=== PATIENT | female | born 1995 | race Two or more races ===

== ENCOUNTER 2020-12-30 10:23 | Inpatient (IN) | payer SELFPAY ==
[~2020-12-30] VITALS: Ht 162.6 cm; Wt 55.0 kg
[2020-12-30] MEDS ORDERED: ONDANSETRON PF 4 MG/2 ML VIAL. IVP ONE (11:30)
[2020-12-30] MEDS ORDERED: IV NORMAL SALINE 1000ML BAG 1,000 ML IV ONE ×3 (11:30→15:45)
[2020-12-30 11:32] LABS: BASO % 0 % (0-3); EOS % 0 % (0-3); HEMATOCRIT 32.5 % (36.0-47.0); LYMPH # 0.9 x10^3/uL (1.0-4.8); LYMPH % 4 % (24-48); MEAN CORPUSCULAR HEMOGLOBIN 26 pg (25-35); MEAN CORPUSCULAR HGB CONC 34 g/dL (31-37); MEAN CORPUSCULAR VOLUME 77 fL (79-100); MONO # 1.4 x10^3/uL (0.0-1.1); MONO % 7 % (0-9); NEUT # 18.3 x10^3/uL (1.8-7.7); NEUT % 89 % (31-73); PLATELET COUNT 251 x10^3/uL (140-400); RED BLOOD COUNT 4.23 x10^6/uL (3.50-5.40); RED CELL DISTRIBUTION WIDTH 19.3 % (11.5-14.5); WHITE BLOOD COUNT 20.6 x10^3/uL (4.0-11.0)
[2020-12-30 11:45] LABS: CALCIUM 8.7 mg/dL (8.5-10.1); CREATININE 0.8 mg/dL (0.6-1.0); POTASSIUM 3.6 mmol/L (3.5-5.1)
[2020-12-30 11:53] LABS: ALBUMIN/GLOBULIN RATIO 0.6 (1.0-1.7); TOTAL BILIRUBIN 0.4 mg/dL (0.2-1.0); TOTAL PROTEIN 8.1 g/dL (6.4-8.2)
[2020-12-30 11:54] LABS: BILIRUBIN,URINE SMALL (NEG); COLOR,URINE AMBER; NITRITE,URINE NEGATIVE (NEG); PROTEIN,URINE 30 mg/dL (NEG-TRACE)
[2020-12-30 12:00] LABS: CLARITY,URINE CLOUDY
[2020-12-30 12:01] LABS: BACTERIA,URINE MANY /HPF (0-FEW); WBC,URINE 20-40 /HPF (0-4)
[2020-12-30 12:05] LABS: % BANDS 6 % (0-9); % LYMPHS 3 % (24-48); % MONOS 3 % (0-10); % SEGS 88 % (35-66)
[2020-12-30 12:06] LABS: ANISOCYTOSIS SLIGHT; PLT ESTIMATE ADEQUATE (ADEQUATE)
--- NOTE | 2020-12-30 12:25 | RAD ---
EXAM: Obstetrics sonogram. HISTORY: Pain. TECHNIQUE: Sonographic imaging of the a gravid uterus was performed. COMPARISON: None. FINDINGS: There is a single intrauterine fetus in transverse presentation with a heart rate of 178 bp m. There is a grade 1 anterior placenta without evidence of placenta previa. The amniotic fluid volum e is grossly normal. The cervix is closed and measures 4.7 cm in length. The gestational sac is parvin l in configuration and location. The biparietal diameter is 1.93 cm, corresponding with 30 weeks and 0 days. The head circumference is 8.10 cm, corresponding with 30 weeks and 3 days. The abdominal circ umference is 6.52 cm, corresponding with 30 weeks and 1 day. The femoral length is 0.78 cm, correspon ding with 12 weeks and 3 days. The estimated gestational age patient combined ultrasound measurements is 13 weeks and 0 days and the estimated due date is 07/07/2021. IMPRESSION: Single intrauterine fetus with normal heart rate and an estimated gestational age based o n ultrasound measurements of 13 weeks and 0 days. No acute sonographic finding. Electronically signed by: Marietta Peters MD (12/30/2020 12:23 PM) [id number]
[2020-12-30] MEDS ORDERED: cefTRIAXone IV Push 1 GM VIAL. IVP ONE (12:30)
[2020-12-30] MEDS ORDERED: MORPHINE SULFATE 4 MG/ML VIAL. ONE (13:46)
[2020-12-30] MEDS ORDERED: MORPHINE SULFATE 4 MG/ML VIAL. IV ONE (14:00)
--- NOTE | 2020-12-30 15:09 | PHYS DOC ---
Past Medical History Past Medical History: No Pertinent History Past Surgical History: No Surgical History Smoking Status: Never Smoker Alcohol Use: None General Adult EDM: Chief Complaint: ABDOMINAL PAIN IN HPI: HPI: Patient is a 25 year old female patient 4 para 1, 1 miscarriage currently 12 to 13 weeks presenting to the ED today complaining of mild to moderate lower abdominal pain radiating to her back, symptoms began a month ago and have got worse yesterday. Reports nausea vomiting for 1 month. Denies any fever. Describes the pain as cramping. Denies any vaginal bleeding. Mazin es anything exacerbating or relieving the pain. She states she follows up with [facility] for her Patient is [place]-speaking and full time staff interpreter line was used Review of Systems: Review of Systems: Constitutional: Denies fever or chills. [] Eyes: Denies change in visual acuity. [] HENT: Denies nasal congestion or sore throat. [] Respiratory: Denies cough or shortness of breath. [] Cardiovascular: Denies chest pain or edema. [] GI: Reports abdominal pain in , denies bloody stools or diarrhea. [] : Denies dysuria. [] Musculoskeletal: Denies back pain or joint pain. [] Integument: Denies rash. [] Neurologic: Denies headache, focal weakness or sensory changes. [] Psychiatric: Denies depression or anxiety. [] Heart Score: C/O Chest Pain: N/A Risk Factors: Risk Factors: DM, Current or recent (<one month) smoker, HTN, HLP, family hi story of CAD, obesity. Risk Scores: Score 0 - 3: 2.5% MACE over next 6 weeks - Discharge Home Score 4 - 6: 20.3% MACE over next 6 weeks - Admit for Clinical Observation Score 7 - 10: 72.7% MACE over next 6 weeks - Early Invasive Strategies Current Medications: Current Medications Medications (Trade) Dose Ordered Sig/Glenny Start Time Stop Time Status Last Admin Dose Admin Ceftriaxone Sodium (Rocephin) 1 gm 1X ONCE 12/30/20 12:30 12/30/20 12:31 DC 12/30/20 13:59 1 GM Ondansetron HCl (Zofran) 4 mg 1X ONCE 12/30/20 11:30 12/30/20 11:31 DC 12/30/20 12:17 4 MG Sodium Chloride 1,000 ml @ 1,000 mls/hr 1X ONCE 12/30/20 11:30 12/30/20 12:29 DC 12/30/20 12:17 1,000 MLS/HR Allergies: Allergies: Allergies Coded Allergies Type Severity Reaction Last Updated Verified No Known Drug Allergies 12/30/20 No Physical Exam: PE: Constitutional: Well developed, well nourished, no acute distress, non-toxic appearance. [] HENT: Normocephalic, atraumatic, bilateral external ears normal, oropharynx moist, no oral exudates, nose normal. [] Eyes: PERRLA, EOMI, conjunctiva normal, no discharge. [] Neck: Normal range of motion, no tenderness, supple, no stridor. [] Cardiovascular:Heart rate regular rhythm, no murmur [] Lungs & Thorax: Bilateral breath sounds clear to auscultation [] Abdomen: Bowel sounds normal, soft, no tenderness, no masses, no pulsatile m asses. [] Skin: Warm, dry, no erythema, no rash. [] Back: No tenderness, no CVA tenderness. [] Extremities: No tenderness, no cyanosis, no clubbing, ROM intact, no edema. [] Neurologic: Alert and oriented X 3, normal motor function, normal sensory function, no focal deficits noted. [] Psychologic: Affect normal, judgement normal, mood normal. [] Current Patient Data: Labs: Laboratory Tests Test 12/30/20 10:50 12/30/20 11:03 12/30/20 11:19 12/30/20 14:05 Urine Collection Type Unknown Urine Color Dorcas Urine Clarity Cloudy Urine pH 6.0 (<5.0-8.0) Urine Specific [place] 1.020 (1.000-1.030) Urine Protein 30 mg/dL (NEG-TRACE) Urine Glucose (UA) Negative mg/dL (NEG) Urine Ketones (Stick) 15 mg/dL (NEG) Urine Blood Large (NEG) Urine Nitrite Negative (NEG) Urine Bilirubin Small (NEG) Urine Urobilinogen Dipstick 1.0 mg/dL (0.2 mg/dL) Urine Leukocyte Esterase Moderate (NEG) Urine RBC 11-20 /HPF (0-2) Urine WBC 20-40 /HPF (0-4) Urine Squamous Epithelial Cells Mod /LPF Urine Bacteria Many /HPF (0-FEW) Urine Mucus Marked /LPF POC Urine HCG, Qualitative Hcg positive (Negative) White Blood Count 20.6 x10^3/uL (4.0-11.0) H Red Blood Count 4.23 x10^6/uL (3.50-5.40) Hemoglobin 11.0 g/dL (12.0-15.5) L Hematocrit 32.5 % (36.0-47.0) L Mean Corpuscular Volume 77 fL (79-100) L Mean Corpuscular Hemoglobin 26 pg (25-35) Mean Corpuscular Hemoglobin Concent 34 g/dL (31-37) Red Cell Distribution Width 19.3 % (11.5-14.5) H Platelet Count 251 x10^3/uL (140-400) Neutrophils (%) (Auto) 89 % (31-73) H Lymphocytes (%) (Auto) 4 % (24-48) L Monocytes (%) (Auto) 7 % (0-9) Eosinophils (%) (Auto) 0 % (0-3) Basophils (%) (Auto) 0 % (0-3) Neutrophils # (Auto) 18.3 x10^3/uL (1.8-7.7) H Lymphocytes # (Auto) 0.9 x10^3/uL (1.0-4.8) L Monocytes # (Auto) 1.4 x10^3/uL (0.0-1.1) H Eosinophils # (Auto) 0.0 x10^3/uL (0.0-0.7) Basophils # (Auto) 0.0 x10^3/uL (0.0-0.2) Segmented Neutrophils % 88 % (35-66) H Band Neutrophils % 6 % (0-9) Lymphocytes % 3 % (24-48) L Monocytes % 3 % (0-10) Platelet Estimate Adequate (ADEQUATE) Anisocytosis Slight Maternal Serum HCG Beta Subunit 18914 mIU/mL (0-5) H Sodium Level 133 mmol/L (136-145) L Potassium Level 3.6 mmol/L (3.5-5.1) Chloride Level 96 mmol/L (98-107) L Carbon Dioxide Level 25 mmol/L (21-32) Anion Gap 12 (6-14) Blood Urea Nitrogen 10 mg/dL (7-20) Creatinine 0.8 mg/dL (0.6-1.0) Estimated GFR (Cockcroft-Gault) 86.0 BUN/Creatinine Ratio 13 (6-20) Glucose Level 98 mg/dL (70-99) Calcium Level 8.7 mg/dL (8.5-10.1) Total Bilirubin 0.4 mg/dL (0.2-1.0) Aspartate Amino Transferase (AST) 13 U/L (15-37) L Alanine Aminotransferase (ALT) 15 U/L (14-59) Alkaline Phosphatase 70 U/L (46-116) Total Protein 8.1 g/dL (6.4-8.2) Albumin 3.0 g/dL (3.4-5.0) L Albumin/Globulin Ratio 0.6 (1.0-1.7) L Lactic Acid Level 1.1 mmol/L (0.4-2.0) Laboratory Tests 12/30/20 11:19 Laboratory Tests 12/30/20 11:19 Vital Signs: Vital Signs Date Time Temp Pulse Resp B/P (MAP) Pulse Ox O2 Delivery O2 Flow Rate FiO2 12/30/20 13:58 16 99 Room Air 12/30/20 11:19 98.1 109 99/59 (72) 98.1 EKG: EKG: [] Radiology/Procedures: Radiology/Procedures: []PROCEDURE: OB < 14 WKS EXAM: Obstetrics sonogram. HISTORY: Pain. TECHNIQUE: Sonographic imaging of the a gravid uterus was performed. COMPARISON: None. FINDINGS: There is a single intrauterine fetus in transverse presentation with a heart rate of 178 bpm. There is a grade 1 anterior placenta without evidence of placenta previa. The amniotic fluid volume is grossly normal. The cervix is closed and measures 4.7 cm in length. The gestational sac is normal in configuration and location. The biparietal diameter is 1.93 cm, corresponding with 30 weeks and 0 days. The head circumference is 8.10 cm, corresponding with 30 weeks and 3 days. The abdominal circumference is 6.52 cm, corresponding with 30 weeks and 1 day. The femoral length is 0.78 cm, corresponding with 12 weeks and 3 days. The estimated gestational age patient combined ultrasound measurements is 13 weeks and 0 days and the estimated due date is 07/07/2021. IMPRESSION: Single intrauterine fetus with normal heart rate and an estimated gestational age based on ultrasound measurements of 13 weeks and 0 days. No acute sonographic finding. Electronically signed by: Marietta Peters MD (12/30/2020 12:23 PM) [id number] DICTATED and SIGNED BY: MARIETTA PETERS MD DATE: 12/30/20 [id number] Course & Med Decision Making: Course & Med Decision Making Pertinent Labs and Imaging studies reviewed. (See chart for details) This 35-year-old female patient presenting to the ED today complaining of low abdominal pain radiating to the right flank region, pain began 1 month ago. Also complaining of nausea and vomiting. Positive urine hCG, beta-hCG 96,768. CBC with a WBC of 20.6, hemoglobin 11.6, hematocrit 32.5, CMP with no acute findings, urine noted for UTI. Vitals on arrival to the ED temperature 98.1 heart rate 109, blood pressure 99/59, respiration 18 on room air, O2 sats 99% OB ultrasound noted for an IUP, heart rate 178 UA positive for UTI. Started on 2 L of IV fluid and Rocephin. Blood cultures pending as well as lactic. Spoke with Dr. Schulte who accepted patient for admission Ernesto Disclaimer: Ernesto Disclaimer: This electronic medical record was generated, in whole or in part, using a voice recognition dictation system. Departure Departure Impression: Primary Impression: Pyelonephritis Additional Impressions: Qualified Codes: Z3A.13 - 13 weeks gestation of Leukocytosis Qualified Codes: D72.829 - Elevated white blood cell count, unspecified Disposition: ADMITTED INPATIENT Condition: STABLE Referrals: NO PCP (PCP) ISHMAEL WHELAN TIRE ASSEMBLER December 30, 2020 15:09
[2020-12-30] MEDS ORDERED: MORPHINE SULFATE 4 MG/ML VIAL. IV PRN (15:45)
[2020-12-30] MEDS ORDERED: ONDANSETRON PF 4 MG/2 ML VIAL. IV PRN (15:45)
--- NOTE | 2020-12-30 16:21 | PDOC1 ---
PASSENGER CAR INSPECTOR H&P Date of Admission: Date of Admission: December 30, 2020 at 13:37 History of Present Illness: EDC: 07/07/21 LMP: unknown 25y @ 13.0 by 13wk u/s who presented to the ER with abd/flank/back pain. She states that she has been having this pain for about a month. The pain became more intense today so she presented to the ER. The pain began before she even knew she was . About 6wks ago she woke up extremely nauseous. She performed a home test that returned positive. [place] [facility] [place] pt had labs drawn revealing a WBC of 20.6 with a left shift. An u/s performed dated the as being 13.0wks gestation. PMH: Denies PSH: Denies Meds: PNV All: NKDA OBHx: TSVD x 1 SH: no tob, no EtOH FH: noncontributory Medications: Meds: Current Medications Medications (Trade) Dose Ordered Sig/Glenny Route PRN Reason Start Time Stop Time Status Last Admin Dose Admin Sodium Chloride 1,000 ml @ 1,000 mls/hr 1X ONCE IV 12/30/20 11:30 12/30/20 12:29 DC 12/30/20 12:17 Ondansetron HCl (Zofran) 4 mg 1X ONCE IVP 12/30/20 11:30 12/30/20 11:31 DC 12/30/20 12:17 Ceftriaxone Sodium (Rocephin) 1 gm 1X ONCE IVP 12/30/20 12:30 12/30/20 12:31 DC 12/30/20 13:59 Sodium Chloride 1,000 ml @ 1,000 mls/hr 1X ONCE IV 12/30/20 13:45 12/30/20 14:44 DC 12/30/20 13:59 Morphine Sulfate (Morphine Sulfate) 4 mg 1X ONCE IV 12/30/20 14:00 12/30/20 14:01 DC 12/30/20 13:58 Allergies: Coded Allergies: No Known Drug Allergies (Unverified , 12/30/20) Physical Exam: Vital Signs: Vital Signs Date Time Temp Pulse Resp B/P (MAP) Pulse Ox O2 Delivery O2 Flow Rate FiO2 12/30/20 13:58 16 99 Room Air 12/30/20 11:19 98.1 109 99/59 (72) 98.1 PE: GENERAL: No apparent distress. Alert and oriented. HEENT: Head normocephalic, atraumatic. NECK: Supple LUNGS: Clear to auscultation. HEART: RRR, S1, S2 present, pulses intact ABDOMEN: Soft, positive bowel sounds. EXTREMITIES: No cyanosis or edema. NEUROLOGIC: Normal speech, normal tone PSYCHIATRIC: Normal affect, normal mood. SKIN: No ulceration. CTAB Tachycardia S/tender diffusely/ND Right CVA tenderness No C/C/E Labs: Laboratory Tests Test 12/30/20 10:50 12/30/20 11:03 12/30/20 11:19 12/30/20 14:05 Urine Collection Type Unknown Urine Color Dorcas Urine Clarity Cloudy Urine pH 6.0 (<5.0-8.0) Urine Specific [place] 1.020 (1.000-1.030) Urine Protein 30 mg/dL (NEG-TRACE) Urine Glucose (UA) Negative mg/dL (NEG) Urine Ketones (Stick) 15 mg/dL (NEG) Urine Blood Large (NEG) Urine Nitrite Negative (NEG) Urine Bilirubin Small (NEG) Urine Urobilinogen Dipstick 1.0 mg/dL (0.2 mg/dL) Urine Leukocyte Esterase Moderate (NEG) Urine RBC 11-20 /HPF (0-2) Urine WBC 20-40 /HPF (0-4) Urine Squamous Epithelial Cells Mod /LPF Urine Bacteria Many /HPF (0-FEW) Urine Mucus Marked /LPF POC Urine HCG, Qualitative Hcg positive (Negative) White Blood Count 20.6 x10^3/uL (4.0-11.0) H Red Blood Count 4.23 x10^6/uL (3.50-5.40) Hemoglobin 11.0 g/dL (12.0-15.5) L Hematocrit 32.5 % (36.0-47.0) L Mean Corpuscular Volume 77 fL (79-100) L Mean Corpuscular Hemoglobin 26 pg (25-35) Mean Corpuscular Hemoglobin Concent 34 g/dL (31-37) Red Cell Distribution Width 19.3 % (11.5-14.5) H Platelet Count 251 x10^3/uL (140-400) Neutrophils (%) (Auto) 89 % (31-73) H Lymphocytes (%) (Auto) 4 % (24-48) L Monocytes (%) (Auto) 7 % (0-9) Eosinophils (%) (Auto) 0 % (0-3) Basophils (%) (Auto) 0 % (0-3) Neutrophils # (Auto) 18.3 x10^3/uL (1.8-7.7) H Lymphocytes # (Auto) 0.9 x10^3/uL (1.0-4.8) L Monocytes # (Auto) 1.4 x10^3/uL (0.0-1.1) H Eosinophils # (Auto) 0.0 x10^3/uL (0.0-0.7) Basophils # (Auto) 0.0 x10^3/uL (0.0-0.2) Segmented Neutrophils % 88 % (35-66) H Band Neutrophils % 6 % (0-9) Lymphocytes % 3 % (24-48) L Monocytes % 3 % (0-10) Platelet Estimate Adequate (ADEQUATE) Anisocytosis Slight Maternal Serum HCG Beta Subunit 13172 mIU/mL (0-5) H Sodium Level 133 mmol/L (136-145) L Potassium Level 3.6 mmol/L (3.5-5.1) Chloride Level 96 mmol/L (98-107) L Carbon Dioxide Level 25 mmol/L (21-32) Anion Gap 12 (6-14) Blood Urea Nitrogen 10 mg/dL (7-20) Creatinine 0.8 mg/dL (0.6-1.0) Estimated GFR (Cockcroft-Gault) 86.0 BUN/Creatinine Ratio 13 (6-20) Glucose Level 98 mg/dL (70-99) Calcium Level 8.7 mg/dL (8.5-10.1) Total Bilirubin 0.4 mg/dL (0.2-1.0) Aspartate Amino Transferase (AST) 13 U/L (15-37) L Alanine Aminotransferase (ALT) 15 U/L (14-59) Alkaline Phosphatase 70 U/L (46-116) Total Protein 8.1 g/dL (6.4-8.2) Albumin 3.0 g/dL (3.4-5.0) L Albumin/Globulin Ratio 0.6 (1.0-1.7) L Lactic Acid Level 1.1 mmol/L (0.4-2.0) Laboratory Tests 12/30/20 11:19 Laboratory Tests 12/30/20 11:19 Laboratory Tests 12/30/20 11:19 Assessment & Plan: A/P 25y @ 13.0 by 13wk u/s 1.) Right pyelonephritis based on exam. WBC 20.6 (with left shift). UA with many bacteria, but moderate squams. Will continue Rocephin started by ER. Afebrile. Ucx and Bcx obtained in ER. 2.) Fetus dated by u/s performed in ER 3.) [facility] CAESAR LONGORIA MD December 30, 2020 16:21
[2020-12-30 16:41] VITALS: BP 109/51
[2020-12-30 19:00] VITALS: BP 84/40
[2020-12-30 23:00] VITALS: BP 99/51
[2020-12-31] MEDS: ACETAMINOPHEN 325 MG TABLET. PO PRN ×3 (02:39→16:53)
[2020-12-31 03:00] VITALS: BP 100/55
[2020-12-31 07:00] VITALS: BP 78/39
[2020-12-31 07:23] LABS: BASO % 0 % (0-3); EOS % 0 % (0-3); HEMATOCRIT 29.5 % (36.0-47.0); HEMOGLOBIN 9.7 g/dL (12.0-15.5); LYMPH % 9 % (24-48); MEAN CORPUSCULAR HEMOGLOBIN 26 pg (25-35); MEAN CORPUSCULAR HGB CONC 33 g/dL (31-37); MEAN CORPUSCULAR VOLUME 79 fL (79-100); MONO # 1.1 x10^3/uL (0.0-1.1); MONO % 10 % (0-9); NEUT # 9.9 x10^3/uL (1.8-7.7); NEUT % 82 % (31-73); PLATELET COUNT 207 x10^3/uL (140-400); RED BLOOD COUNT 3.71 x10^6/uL (3.50-5.40); RED CELL DISTRIBUTION WIDTH 19.7 % (11.5-14.5); WHITE BLOOD COUNT 12.1 x10^3/uL (4.0-11.0)
[2020-12-31] MEDS ORDERED: IV NORMAL SALINE 1000ML BAG 1,000 ML IV ONE (08:00)
--- NOTE | 2020-12-31 09:49 | NUR ---
SW following. Discussed with RN, pt from home with family, room air, regular diet, IV rocephin. Med Assist following for self pay status. SW will continue to follow.
--- NOTE | 2020-12-31 10:06 | PDOC ---
STRIPING MACHINE OPERATOR PROGRESS NOTE Date of Service: DATE: 12/31/20 TIME: 10:05 Subjective: The pt feels better today. Denies f/c. Objective: Vital Signs: Vital Signs Date Time Temp Pulse Resp B/P (MAP) Pulse Ox O2 Delivery O2 Flow Rate FiO2 12/30/20 11:19 98.1 109 18 99/59 (72) 99 Room Air 98.1 Vital Signs Date Time Temp Pulse Resp B/P (MAP) Pulse Ox O2 Delivery O2 Flow Rate FiO2 12/31/20 07:35 Room Air 12/31/20 07:00 97.7 76 17 78/39 (52) 99 97.7 Labs: Laboratory Tests Test 12/30/20 10:50 12/30/20 11:03 12/30/20 11:19 12/30/20 14:05 Urine Collection Type Unknown Urine Color Dorcas Urine Clarity Cloudy Urine pH 6.0 (<5.0-8.0) Urine Specific [place] 1.020 (1.000-1.030) Urine Protein 30 mg/dL (NEG-TRACE) Urine Glucose (UA) Negative mg/dL (NEG) Urine Ketones (Stick) 15 mg/dL (NEG) Urine Blood Large (NEG) Urine Nitrite Negative (NEG) Urine Bilirubin Small (NEG) Urine Urobilinogen Dipstick 1.0 mg/dL (0.2 mg/dL) Urine Leukocyte Esterase Moderate (NEG) Urine RBC 11-20 /HPF (0-2) Urine WBC 20-40 /HPF (0-4) Urine Squamous Epithelial Cells Mod /LPF Urine Bacteria Many /HPF (0-FEW) Urine Mucus Marked /LPF POC Urine HCG, Qualitative Hcg positive (Negative) White Blood Count 20.6 x10^3/uL (4.0-11.0) H Red Blood Count 4.23 x10^6/uL (3.50-5.40) Hemoglobin 11.0 g/dL (12.0-15.5) L Hematocrit 32.5 % (36.0-47.0) L Mean Corpuscular Volume 77 fL (79-100) L Mean Corpuscular Hemoglobin 26 pg (25-35) Mean Corpuscular Hemoglobin Concent 34 g/dL (31-37) Red Cell Distribution Width 19.3 % (11.5-14.5) H Platelet Count 251 x10^3/uL (140-400) Neutrophils (%) (Auto) 89 % (31-73) H Lymphocytes (%) (Auto) 4 % (24-48) L Monocytes (%) (Auto) 7 % (0-9) Eosinophils (%) (Auto) 0 % (0-3) Basophils (%) (Auto) 0 % (0-3) Neutrophils # (Auto) 18.3 x10^3/uL (1.8-7.7) H Lymphocytes # (Auto) 0.9 x10^3/uL (1.0-4.8) L Monocytes # (Auto) 1.4 x10^3/uL (0.0-1.1) H Eosinophils # (Auto) 0.0 x10^3/uL (0.0-0.7) Basophils # (Auto) 0.0 x10^3/uL (0.0-0.2) Segmented Neutrophils % 88 % (35-66) H Band Neutrophils % 6 % (0-9) Lymphocytes % 3 % (24-48) L Monocytes % 3 % (0-10) Platelet Estimate Adequate (ADEQUATE) Anisocytosis Slight Maternal Serum HCG Beta Subunit 99110 mIU/mL (0-5) H Sodium Level 133 mmol/L (136-145) L Potassium Level 3.6 mmol/L (3.5-5.1) Chloride Level 96 mmol/L (98-107) L Carbon Dioxide Level 25 mmol/L (21-32) Anion Gap 12 (6-14) Blood Urea Nitrogen 10 mg/dL (7-20) Creatinine 0.8 mg/dL (0.6-1.0) Estimated GFR (Cockcroft-Gault) 86.0 BUN/Creatinine Ratio 13 (6-20) Glucose Level 98 mg/dL (70-99) Calcium Level 8.7 mg/dL (8.5-10.1) Total Bilirubin 0.4 mg/dL (0.2-1.0) Aspartate Amino Transferase (AST) 13 U/L (15-37) L Alanine Aminotransferase (ALT) 15 U/L (14-59) Alkaline Phosphatase 70 U/L (46-116) Total Protein 8.1 g/dL (6.4-8.2) Albumin 3.0 g/dL (3.4-5.0) L Albumin/Globulin Ratio 0.6 (1.0-1.7) L Lactic Acid Level 1.1 mmol/L (0.4-2.0) Test 12/31/20 06:15 White Blood Count 12.1 x10^3/uL (4.0-11.0) H Red Blood Count 3.71 x10^6/uL (3.50-5.40) Hemoglobin 9.7 g/dL (12.0-15.5) L Hematocrit 29.5 % (36.0-47.0) L Mean Corpuscular Volume 79 fL (79-100) Mean Corpuscular Hemoglobin 26 pg (25-35) Mean Corpuscular Hemoglobin Concent 33 g/dL (31-37) Red Cell Distribution Width 19.7 % (11.5-14.5) H Platelet Count 207 x10^3/uL (140-400) Neutrophils (%) (Auto) 82 % (31-73) H Lymphocytes (%) (Auto) 9 % (24-48) L Monocytes (%) (Auto) 10 % (0-9) H Eosinophils (%) (Auto) 0 % (0-3) Basophils (%) (Auto) 0 % (0-3) Neutrophils # (Auto) 9.9 x10^3/uL (1.8-7.7) H Lymphocytes # (Auto) 1.0 x10^3/uL (1.0-4.8) Monocytes # (Auto) 1.1 x10^3/uL (0.0-1.1) Eosinophils # (Auto) 0.0 x10^3/uL (0.0-0.7) Basophils # (Auto) 0.0 x10^3/uL (0.0-0.2) Laboratory Tests 12/30/20 11:19 12/31/20 06:15 Laboratory Tests 12/30/20 11:19 Laboratory Tests 12/30/20 11:19 12/31/20 06:15 Physical Exam: GENERAL: No apparent distress. Alert and oriented. HEENT: Head normocephalic, atraumatic. NECK: Supple LUNGS: Clear to auscultation. HEART: RRR, S1, S2 present, pulses intact ABDOMEN: Soft, positive bowel sounds. EXTREMITIES: No cyanosis or edema. NEUROLOGIC: Normal speech, normal tone PSYCHIATRIC: Normal affect, normal mood. SKIN: No ulceration. Assessment & Plan: A/P 25y @ 13.1 by 13wk u/s 1.) Right pyelonephritis based on exam. Afebrile throughout hospital course (Tmax 99.1 at 1900). WBC 20.6 -> 12.1 still with left shift. UCx with E. coli. Will transition to Macrobid and d/c Rocephin after todays dose. Awaiting sens itivities. 2.) Anemia Hgb 11.0 -> 9.7, will start Fe BID. Most likely dilutional. 3.) Hypotension tachycardia has resolved. Most likely physiologic 4.) Fetus dated by u/s performed in ER 5.) Disp mostly d/c tomorrow CAESAR LONGORIA MD December 31, 2020 10:06
[2020-12-31] MEDS: FERROUS SULFATE 325 MG TABLET. PO SCH ×2 (10:18→21:38)
[2020-12-31] MEDS: NITROFURANTOIN MONOHYD/M-CRYST 100 MG CAPSULE. PO SCH ×2 (10:19→21:38)
[2020-12-31 11:00] VITALS: BP 87/49
[2020-12-31] MEDS ORDERED: cefTRIAXone IV Push 1 GM VIAL. IVP SCH (14:00)
[2020-12-31 15:00] VITALS: BP 82/46
[2020-12-31 19:00] VITALS: BP 93/42
[2020-12-31 23:00] VITALS: BP 82/42
[2021-01-01 03:00] VITALS: BP 85/42
[2021-01-01] MEDS: ACETAMINOPHEN 325 MG TABLET. PO PRN (03:20)
[2021-01-01] MEDS ORDERED: ONDANSETRON PF 4 MG/2 ML VIAL. IVP PRN (03:30)
[2021-01-01 05:40] LABS: BASO % 0 % (0-3); EOS % 0 % (0-3); HEMATOCRIT 28.1 % (36.0-47.0); HEMOGLOBIN 9.2 g/dL (12.0-15.5); LYMPH # 0.8 x10^3/uL (1.0-4.8); LYMPH % 8 % (24-48); MEAN CORPUSCULAR HEMOGLOBIN 26 pg (25-35); MEAN CORPUSCULAR HGB CONC 33 g/dL (31-37); MEAN CORPUSCULAR VOLUME 79 fL (79-100); MONO # 0.8 x10^3/uL (0.0-1.1); MONO % 8 % (0-9); NEUT # 8.4 x10^3/uL (1.8-7.7); NEUT % 84 % (31-73); PLATELET COUNT 223 x10^3/uL (140-400); RED BLOOD COUNT 3.54 x10^6/uL (3.50-5.40); RED CELL DISTRIBUTION WIDTH 19.8 % (11.5-14.5); WHITE BLOOD COUNT 10.1 x10^3/uL (4.0-11.0)
[2021-01-01 07:00] VITALS: BP 71/36
[2021-01-01] MEDS: NITROFURANTOIN MONOHYD/M-CRYST 100 MG CAPSULE. PO SCH (07:47)
[2021-01-01] MEDS: FERROUS SULFATE 325 MG TABLET. PO SCH (07:47)
--- NOTE | 2021-01-01 09:47 | NUR ---
SW following. Discussed with RN, pt from home with family, room air, regular diet. Med Assist following - does not meet any criteria for Medicaid at this time. Possible discharge home today. SW will continue to follow.
[2021-01-01 11:00] VITALS: BP 76/45
[2021-01-01] MEDS ORDERED: ONDA4TAB7 PO (12:49)
[2021-01-01] MEDS ORDERED: NITR100C62 PO (12:49)
[2021-01-01] MEDS ORDERED: FERR325T14 PO (12:49)
--- NOTE | 2021-01-01 14:53 | NUR ---
PT DISCHARGED HOME WITH SELF CARE. DISCHARGE INSTRUCTIONS AND PRESCRIPTIONS DISCUSSED USING THE MYSQL DBA PHONE. IV REMOVED. PT AMBULATED TO MAIN ENTRANCE AND WAS SECURED IN CAR WITH FAMILY.
--- NOTE | 2021-01-01 15:04 | PDOC ---
FIELD REPORTER PROGRESS NOTE Date of Service: DATE: 01/01/21 TIME: 15:03 Subjective: Pt feels much better today. Objective: Vital Signs: Vital Signs Date Time Temp Pulse Resp B/P (MAP) Pulse Ox O2 Delivery O2 Flow Rate FiO2 12/31/20 07:00 97.7 76 17 78/39 (52) 99 Room Air 97.7 Vital Signs Date Time Temp Pulse Resp B/P (MAP) Pulse Ox O2 Delivery O2 Flow Rate FiO2 01/01/21 11:00 97.8 73 18 76/45 (55) 100 Room Air 97.8 Labs: Laboratory Tests Test 01/01/21 04:43 White Blood Count 10.1 x10^3/uL (4.0-11.0) Red Blood Count 3.54 x10^6/uL (3.50-5.40) Hemoglobin 9.2 g/dL (12.0-15.5) L Hematocrit 28.1 % (36.0-47.0) L Mean Corpuscular Volume 79 fL (79-100) Mean Corpuscular Hemoglobin 26 pg (25-35) Mean Corpuscular Hemoglobin Concent 33 g/dL (31-37) Red Cell Distribution Width 19.8 % (11.5-14.5) H Platelet Count 223 x10^3/uL (140-400) Neutrophils (%) (Auto) 84 % (31-73) H Lymphocytes (%) (Auto) 8 % (24-48) L Monocytes (%) (Auto) 8 % (0-9) Eosinophils (%) (Auto) 0 % (0-3) Basophils (%) (Auto) 0 % (0-3) Neutrophils # (Auto) 8.4 x10^3/uL (1.8-7.7) H Lymphocytes # (Auto) 0.8 x10^3/uL (1.0-4.8) L Monocytes # (Auto) 0.8 x10^3/uL (0.0-1.1) Eosinophils # (Auto) 0.0 x10^3/uL (0.0-0.7) Basophils # (Auto) 0.0 x10^3/uL (0.0-0.2) Laboratory Tests 01/01/21 04:43 Laboratory Tests 01/01/21 04:43 Physical Exam: GENERAL: No apparent distress. Alert and oriented. HEENT: Head normocephalic, atraumatic. NECK: Supple LUNGS: Clear to auscultation. HEART: RRR, S1, S2 present, pulses intact ABDOMEN: Soft, positive bowel sounds. EXTREMITIES: No cyanosis or edema. NEUROLOGIC: Normal speech, normal tone PSYCHIATRIC: Normal affect, normal mood. SKIN: No ulceration. Assessment & Plan: A/P 25y @ 13.1 by 13wk u/s 1.) Right pyelonephritis based on exam. Afebrile throughout hospital course (Tmax 99.1 at 1900). WBC 20.6 -> 12.1 -> 9.2. UCx with E. coli. On Macrobid (s/p Rocephin) 2.) Anemia Hgb 11.0 -> 9.7 -> 9.2, on Fe BID. Most likely dilutional. 3.) Hypotension tachycardia has resolved. Most likely physiologic 4.) Fetus dated by u/s performed in ER 5.) Disp d/ home CAESAR LONGORIA MD January 01, 2021 15:04
--- NOTE | 2021-01-01 20:12 | DS ---
DATE OF DISCHARGE: 01/01/2021 ADMITTING DIAGNOSES: 1. Intrauterine at 13 weeks and 0 days by 13-week ultrasound. 2. Right pyelonephritis. 3. Anemia. DISCHARGE DIAGNOSES: 1. Intrauterine at 13 weeks and 0 days by 13-week ultrasound. 2. Right pyelonephritis. 3. Anemia. PROCEDURE: None. BRIEF HOSPITAL COURSE: The patient is a 25-year-old 2, para 1-0-0-1, who presented to the ER at 13 weeks and 0 days with 13-week ultrasound, with abdominal flank and back pain. The patient reports having the pain for about a month, but became more intense the day she presented to the ER. She states the pain began before she even knew she was . About a month ago, she established care after taking a home test. When the patient presented to the ER, she was found to have a white count of 20.6 with a left shift and OB ultrasound was performed, revealing a fetus measuring 13 weeks and 0 days. The patient's exam was significant for right CVA tenderness. The patient was subsequently admitted and started on Rocephin. Urine culture ultimately returned positive for Escherichia coli with sensitivities performed. Once the sensitivities returned, the patient was started on Macrobid p.o. By hospital day #2, the patient was feeling much better and was subsequently discharged home. Of note, the patient initially in the first 24 hours, had some tachycardia. Once her infection was adequately treated, her tachycardia resolved. Although the patient was noted to have hypotension, it was felt that it was related to physiologic changes and the patient ran low normally. The patient's white count over the course of the hospitalization went from 20.6 to 12.1 to 9.2. By the day of discharge, her hemoglobin was also noted to be 11.0 on admission and it dropped to 9.7 and then 9.2, which was mostly to delusional reasons. The patient was started on iron b.i.d. for her anemia. DISCHARGE INSTRUCTIONS: The patient was told that she did not have any restrictions. CALL IF: The patient was to call if she had fevers, chills, nausea, vomiting, abdominal pain or any additional questions or concerns. FOLLOWUP APPOINTMENT: The patient is to follow up on 01/09/2021 at 3:00 p.m. at [facility] followup/return OB visit. DISCHARGE MEDICATIONS: The patient was given a prescription for Macrobid 100 mg, 20 pills; ferrous sulfate 325 mg, 30 pills; and Zofran 4 mg, [address]: Carlos TID: [id number] MTDD
== END 2021-01-01 14:57 | disposition home or self-care (01) | DRG 833 ==
LOC: ER 10:23 → 4 NORTH 13:37
PROVIDERS: ADMIT Obstetrics & Gynecology; ATTEND Obstetrics & Gynecology
DX: O23.01 Infections of kidney in pregnancy, first trimester (principal); B96.20 Unspecified Escherichia coli [E. coli] as the cause of diseases classified elsewhere; D64.9 Anemia, unspecified; O99.011 Anemia complicating pregnancy, first trimester; I95.9 Hypotension, unspecified; R00.0 Tachycardia, unspecified; Z3A.13 13 weeks gestation of pregnancy
CPT/HCPCS: 36415; 76801; 80053; 81001; 81025; 83605; 84702; 85007; 85025; 87040; 87077; 87086; 87186; 96361; 96374; 96375; J0696; J2270; J2405; J7030; 99285-25; G0378